=== PATIENT | male | born 1990 | race Caucasian/White ===

== ENCOUNTER 2016-07-02 06:22 | Day surgery (SDC) | payer BC ==
[2016-06-14 14:57] VITALS: BMI 27.6
[~2016-07-02 06:22] MED LIST: LIDOCAINE HCL 1%, 10 MG/ML (20ML VIAL) IJ ONE
[2016-07-02] MEDS ORDERED: LIDOCAINE HCL/PF 2% SDV 5ML VIAL ONE (07:23)
[2016-07-02] MEDS ORDERED: ePHEDrine SULFATE 50 MG/1 ML AMPULE ONE (07:23)
[2016-07-02] MEDS ORDERED: DEXAMETHASONE SOD PHOSPHATE 4 MG/1 ML VIAL ONE (07:23)
[2016-07-02] MEDS ORDERED: PROPOFOL 20 ML ONE ×2 (07:24)
[2016-07-02] MEDS ORDERED: SUCCINYLCHOLINE CHLORIDE 200 MG/10 ML VIAL ONE (07:24)
[2016-07-02] MEDS ORDERED: MIDAZOLAM HCL 2 MG/2 ML SINGLE DOSE VIAL ONE ×3 (07:24→08:18)
[2016-07-02] MEDS ORDERED: SODIUM CHLORIDE 0.9% P/F 10 ML VIAL IJ ONE ×2 (07:24→07:29)
[2016-07-02] MEDS ORDERED: LIDOCAINE HCL 1%, 10 MG/ML (20ML VIAL) ONE (07:29)
[2016-07-02] MEDS ORDERED: BUPIVACAINE HCL/PF 0.5% (5MG/ML) 10 ML VIAL ONE (07:30)
[2016-07-02] MEDS ORDERED: CLINDAMYCIN PHOSPHATE 600 MG/4 ML VIAL IVPB ONE ×2 (07:57→08:02)
[2016-07-02] MEDS ORDERED: CLINDAMYCIN PHOSPHATE 600 MG/4 ML VIAL ONE (07:59)
[2016-07-02] MEDS ORDERED: LIDOCAINE HCL 1%, 10 MG/ML (20ML VIAL) IJ ONE ×2 (08:07)
[2016-07-02] MEDS ORDERED: BUPIVACAINE HCL/PF (5 MG/ML) 30 ML VIAL IJ ONE (08:07)
[2016-07-02] MEDS ORDERED: ONDANSETRON 4 MG/2 ML VIAL IVPUSH PRN (09:08)
[2016-07-02] MEDS ORDERED: oxyCODONE HCL 5 MG TABLET PO PRN (09:08)
[2016-07-02] MEDS ORDERED: LACTATED RINGERS SOLUTION 1,000 ML IV SCH (09:15)
[2016-07-02 09:41] VITALS: TEMP 98.1
--- NOTE | 2016-07-02 10:29 | OP ---
Operative Note - Note: Operative Date: 07/02/16 Pre-Operative Diagnosis: Back mass Operation: Excision of back mass Findings: Back mass Post-Operative Diagnosis: Same as Pre-op Surgeon: Eugenio Saravia Anesthesia: Local, MAC Specimens Removed: Back mass Estimated Blood Loss (mls): 10 Operative Report Dictated: Yes
[2016-07-02 10:46] VITALS: BP 112/64; PULSE 70
--- NOTE | 2016-07-02 12:10 | OP ---
DATE OF OPERATION: 07/02/2016 SURGEON: Cristiano Saravia MD ANESTHESIA: MAC/local. PREOPERATIVE DIAGNOSIS: Back mass. POSTOPERATIVE DIAGNOSIS: Back mass. PROCEDURE: Excision of back mass. SPECIMEN: Back mass. ESTIMATED BLOOD LOSS: 10 mL. REASON FOR PROCEDURE: This is a 26-year-old gentleman who presented for evaluation of a back mass. It caused him discomfort and has increased in size. Because of this, he was consented for excision of back mass. The risks and benefits of the procedure were explained. These included bleeding, infection, recurrence of mass, injury to surrounding structures, VT, DVT, PE. He understood and signed informed consent. DESCRIPTION OF PROCEDURE: The patient was placed in the right lateral decubitus position. The area was prepped and draped in the usual sterile fashion. Time- out was performed. Local anesthesia was injected in the site, and a vertical incision was made over the area. The mass was fully dissected and excised. The area was irrigated, and hemostasis was achieved using electrocautery. The 3-0 Vicryl suture was used to close the deep subcutaneous tissue. The skin was closed using a 0 silk in a horizontal mattress fashion. Sterile dressings were applied. The patient tolerated the procedure well and was transferred to the recovery room in stable condition. CRISTIANO SARAVIA M.D. RICHI/[id number] MTDD
--- NOTE | 2016-07-03 12:59 | PATH ---
Surgical Pathology Report Patient Name: PAULA MCDOWELL Med. Rec. #: [id number] /Age/Gender: 1990 (Age: 26) / M Account: [id number] Location: [facility] SURGICAL Taken: 07/02/2016 Received: 07/02/2016 Reported: 07/03/2016 Physicians: Eugenio Saravia M.D. Specimen(s) Received MASS OF BACK Clinical History Back mass Final Diagnosis SKIN, BACK, EXCISION: EPIDERMAL INCLUSION CYST (KERATINOUS CYST). Electronically Signed Jamaal Vaughn M.D. Gross Description Received in formalin labeled "mass from back," is a 2.2 x 1.8 x 0.3 cm aggregate of welch soft tissue fragments, possibly consistent with a disrupted cyst. The specimen is entirely submitted in one cassette. /07/02/201607/02/2016
--- NOTE | 2016-07-13 14:56 | HP ---
Satellite [facility] - Chief Complaint Chief Complaint: Back mass History of Present Illness: 26 male presents for excision of back mass History Source: Patient Limitations to Obtaining History: No Limitations - Past Medical History Allergies/Adverse Reactions: Allergies Allergy/AdvReac Type Severity Reaction Status Date / Time Penicillins Allergy Unknown Verified 07/10/16 17:37 - Current Medications Current Medications: Home Medications Medication Instructions Recorded Clindamycin [Cleocin -] 300 mg PO Q8H #14 capsule 07/10/16 Satellite Physical Exam - Physical Examination General Appearance: Well Nourished Lung: Clear to auscultation Heart: Regular rate & rhythm Abdomen: Soft Neurological: Alert, Oriented Satellite Impression/Plan - Impression/Plan Impression: Back mass Operative Procedure: Excision of back mass Date to be Performed: 07/02/16
== END 2016-07-02 10:48 | disposition home or self-care (01) ==
LOC: JASU-SURG 06:22
PROVIDERS: ATTEND Surgery
PROC: 0HB6XZZ Excision of Back Skin, External Approach (ICD-10-PCS; principal; 2016-07-02 08:00)
DX: L72.0 Epidermal cyst (principal)
CPT/HCPCS: 88304-TC; 94760

== ENCOUNTER 2016-07-10 17:35 | Emergency (ER) | payer BC ==
[2016-07-10 17:40] VITALS: BP 113/65; PULSE 66; TEMP 98; BMI 28.0
[2016-07-10] MEDS ORDERED: CLINDAMYCIN HCL 150 MG CAPSULE (FP) ONE (18:33)
[2016-07-10] MEDS ORDERED: CLINDAMYCIN HCL 150 MG CAPSULE (FP) PO ONE (18:34)
--- NOTE | 2016-07-10 18:40 | PDOC ---
Suture Removal/Wound Check HPI - History of Present Illness Chief Complaint: Wound Stated Complaint: WOUND Time Seen by Provider: 07/10/16 17:59 History Source: Yes: Patient Exam Limitations: Yes: No Limitations Treated at: [facility] ED - Previous ED Treatment Type of procedure performed on last visit: Yes: Other (surgical removal of back mass on 07/02/[address] Saravia) Tetanus Immunization: Yes: Up to Date Antibiotics Prescribed: No - Onset of Previous Treatment Comment:: 07/10/16 18:36 Chief complaint: Stitches on surgical site on back popped open today History of present illness: Patient is a 26-year-old male with no significant medical history except surgical removal or back mass on 07/02/[address] Saravia here. Reports that he was at work today and flex his back and felt sutures to the surgical site pop open. Patient reports that he has not been on any antibiotics post surgery. He denies that area is painful. Patient called Dr. Saravia however has not heard from them yet. Past History - Past Medical History Allergies/Adverse Reactions: Allergies Penicillins Allergy (Unknown, Verified 07/10/16 17:37) Home Medications: Ambulatory Orders Clindamycin [Cleocin -] 300 mg PO Q8H #14 capsule 07/10/16 General: Yes: no pertinent history Surgical History: Yes: Other (back mass ) - Immunization History Tetanus Status: Unknown - Social History Smoking Status: Never smoked Suture Removal/Wound Check PE - Physical Exam Laceration/Wound Check Symptoms: reports: Other Comment (sutures broke on mid back surgical site, from 07/02/16) Location of Laceration/Wound: bilateral: Back (mid back open wound approx 4 cm x 1 cm with erythema of wound edges, sutures knots remain on rt. side of wound, minor edema or wound edges) Comments: 07/10/16 18:45 Surgical site on mid back open sutures opened while at work today 3 surgical knots still remain on right side of the wound wound edges are slightly with this and erythematous mother noted on bilateral sides of the wound area is minimally tender to touch wound was cleansed with normal saline 0.9%, dried and 2 X 2 gauge pad with tegaderm applied. *Review of Systems - Review of Systems Able to Perform ROS?: Yes Constitutional: No: Symptoms Reported HEENTM: No: Symptoms Reported Respiratory: No: Symptoms reported Cardiac (ROS): No: Symptoms Reported ABD/GI: No: Symptoms Reported : No: Symptoms Reported Musculoskeletal: No: Symptoms Reported Integumentary: Yes: Other (wound mid back 4 cm x 1 cm sutures three opened today while at work ) Procedures - Consent Consent obtained: From Patient - Additional Procedures Progress: 07/10/16 18:48 Wound on mid back with normal saline 0.9% dried area well 3 surgical knots noted on right side of the wound minor edema of the wound edges bilaterally and erythema of the wound edges noted with minimal tenderness of area. Area dried and 2 x 2 gauze applied with Tegaderm Medical Decision Making - Medical Decision Making 07/10/16 18:38 Patient is a 26-year-old male with no significant medical history except surgical removal or back mass on 07/02/[address] Saravia here. Reports that he was at work today and flex his back and felt sutures to the surgical site pop open. Patient reports that he has not been on any antibiotics post surgery. He denies that area is painful. Patient called Dr. Saravia however has not heard from them yet. Sutures open to surgical site on mid back PLAN: Dr. Saravia's called for consult, Dr. Zamarripa called back and recommended that patient be given clindamycin 300 mg by mouth now than every 6 hours for 5 days. He recommended cleansing they surgical site applying a dressing. patient to come here tomorrow and go directly to [facility] to see him for follow up per Dr. Saravia 07/10/16 18:39 07/10/16 18:49 *DC/Admit/Observation/Transfer Diagnosis at time of Disposition: Visit for wound check Broken suture Qualifiers: Encounter type: initial encounter Qualified Code(s): T81.31XA - Disruption of external operation (surgical) wound, not elsewhere classified, initial encounter - Discharge Dispostion Disposition: HOME Condition at time of disposition: Stable - Patient Instructions Additional Instructions: Come here tomorrow between 9 and 9:30 [address] SARAVIA Leave on dressing until you see Dr. Saravia tomorrow Give antibiotics as ordered here today until completed or further direction from Dr. Saravia Patient voiced understanding of discharge instructions and all questions were answered
== END 2016-07-10 18:55 | disposition home or self-care (01) ==
LOC: JERFT 17:35
DX: T81.31XA Disruption of external operation (surgical) wound, not elsewhere classified, initial encounter (principal)
CPT/HCPCS: 99281-25